=== PATIENT | male | born 1980 | race Caucasian/White ===

== ENCOUNTER 2017-01-21 18:26 | Emergency (ER) | payer SELFPAY ==
[~2017-01-21] VITALS: Ht 182.9 cm; Wt 78.6 kg
[2017-01-21] MEDS ORDERED: PROPARACAINE OPHTH 0.5%, 15ML ONE (19:06)
[2017-01-21] MEDS ORDERED: PROPARACAINE OPHTH 0.5%, 15ML EACHEYE ONE (19:30)
== END 2017-01-21 19:40 | disposition left against medical advice (07) ==
LOC: ED 19:34
DX: H10.213 Acute toxic conjunctivitis, bilateral (principal); H57.13 Ocular pain, bilateral
CPT/HCPCS: 99283